=== PATIENT | male | born 1995 | race Caucasian/White ===

== ENCOUNTER 2020-06-10 16:24 | Emergency (ER) | payer BC, OTHER ==
[~2020-06-10] VITALS: Ht 187.9 cm; Wt 88.4 kg
[2020-06-10] MEDS ORDERED: NS IV 1000 ML 1,000 ML IV SCH (17:04)
[2020-06-10 17:12] LABS: BILIRUBIN,URINE NEGATIVE (NEGATIVE); CLARITY,URINE CLEAR; COLOR,URINE YELLOW; GLUCOSE, URINE (UA) NEGATIVE (NEGATIVE); KETONES,URINE NEGATIVE (NEGATIVE); LEUKOCYTE ESTERASE ,URINE NEGATIVE (NEGATIVE); NITRITE,URINE NEGATIVE (NEGATIVE); PROTEIN,URINE NEGATIVE (NEGATIVE)
--- NOTE | 2020-06-10 17:13 | NUR ---
Pt declining all interventions at this time except having urine tested and the COVID swab. Pt refusing chest xray, IV, labs and fluids. Susy Shoemaker notified.
[2020-06-10 17:23] LABS: AMORPHOUS SEDIMENT,UR RARE AMOR URATES /LPF; BACTERIA,URINE NEGATIVE /HPF
--- NOTE | 2020-06-10 17:30 | NUR ---
Went in to have pt sign AMA form; pt now wanting to stay.
--- NOTE | 2020-06-10 17:50 | NUR ---
Pt only wants COVID swab and no other interventions.
--- NOTE | 2020-06-10 18:15 | ED General ---
General Chief Complaint: Fever-Adult/Adol Stated Complaint: FEVER / FATIGUE Nursing Triage Note: Pt c/o chills and back pain that began today. Pt went to chiropractor for back without relief. Pt reports taking Ibuprophen 800 mg CHANGE PERSON. Nursing Sepsis Screen: Possible Severe Sepsis Risk (TAD REYNAGA) History of Present Illness Date Seen by Provider: Jun 13, 2020 Time Seen by Provider: 16:55 Initial Comments 24-year-old male patient reports for back pain that began today, he was seen by a chiropractor with no improvement of his symptoms. He took ibuprofen 800 mg. History of previous back problems. He denies any pain radiating into his legs. He denies any bowel or bladder retention or incontinence. He has occ cough and congestion, with fever today. No known COVID exposure but he has not been social distancing. He has not been tested for COVID. No change in smell or taste. Timing/Duration: 24 Hours, Intermittent Severity: Mild Associated Systoms: Denies Symptoms; No Weakness; Other (no bowel or bladder changes) (TAD REYNAGA) Allergies and Home Medications Allergies Coded Allergies: acetaminophen (Unverified Allergy, Unknown, 06/10/20) Patient Home Medication List Home Medication List Reviewed: Yes (TAD REYNAGA) Review of Systems Review of Systems Constitutional: see HPI, fever Respiratory: see HPI, cough; No phlegm Cardiovascular: no symptoms reported, see HPI Gastrointestinal: no symptoms reported, see HPI Musculoskeletal: see HPI, back pain (TAD REYNAGA) All Other Systems Reviewed Negative Unless Noted: Yes (TAD REYNAGA) Past Uqpfabl-Pjxlkl-Vxkola Hx Past Med/Social Hx: Reviewed Nursing Past Med/Soc Hx (TAD REYNAGA) Patient Social History Alcohol Use: Occasionally Uses Recreational Drug Use: Yes (marijuana) Smoking Status: Current Someday Smoker Type Used: Cigarettes 2nd Hand Smoke Exposure: Yes Recent Foreign Travel: No Contact w/Someone Who Travel: No Recent Infectious Disease Expo: No (TAD REYNAGA) Physical Exam Vital Signs Capillary Refill : Less Than 3 Seconds (TAD REYNAGA) Height, Weight, BMI Height: '" Weight: lbs. oz. kg; 25.00 BMI Method: General Appearance: No Apparent Distress, WD/WN HEENT: PERRL/EOMI, TMs Normal, Normal ENT Inspection, Pharynx Normal; No Pharyngeal Erythema, No Tonsillar Exudate, No Tonsillar Enlargement Neck: Full Range of Motion, Normal Inspection, Non Tender Respiratory: Chest Non Tender, Lungs Clear, Normal Breath Sounds Cardiovascular: Regular Rate, Rhythm, No Edema, No Murmur, Normal Peripheral Pulses Gastrointestinal: Normal Bowel Sounds, Soft Back: Normal Inspection, Muscle Spasm; No Vertebral Tenderness; Other (ambulates with a steady gait, negative straight leg raising sign, neurovascular status intact bilateral lower extremities.) Extremity: Normal Capillary Refill, Normal Inspection, Normal Range of Motion Neurologic/Psychiatric: Alert, Oriented x3, No Motor/Sensory Deficits, Normal Mood/Affect Skin: Normal Color, Warm/Dry (TAD REYNAGA) Progress/Results/Core Measures Suspected Sepsis Recent Fever Within 48 Hours: Yes Infection Criteria Present: Suspected New Infection New/Unexplained Altered Menta: No Sepsis Screen: Possible Severe Sepsis Risk SIRS Temperature: Pulse: 105 Respiratory Rate: 18 Blood Pressure 134 /91 Mean: 105 (TAD REYNAGA) Results/Orders Vital Signs/I&O Capillary Refill : Less Than 3 Seconds (TAD REYNAGA) Blood Pressure Mean: 105 Progress Note : Time: 16:55 Progress Note Patient seen and evaluated, recommended labs, COVID swab and UA. 1715 Patient declining lab, agreeable to UA. Speaking to his mom by Cell phone. Concerned about "cost of all these tests." Patient reports he will leave AMA, explained importance of quarantining, calling [facility] tomorrow and having COVID test completed tomorrow. Patient talked to his mom, agreeable to stay here and be treated. Will complete COVID test. Notified lab, as order was cancelled and they re-entered it. 1730 [address] 99.[address] Thrasher, she will be in touch with him and collect contact tr acing at [facility] tomorrow. Discharge instructions and return precautions reviewed with the patient. All questions answered. (TAD REYNAGA) Progress Note : Progress Note Patient is laboratory confirmed COVID-19 Positive. Patient has been informed as well as [facility]. (ZEE BELCHER MD) Departure Impression Primary Impression: Fever Qualified Codes: R50.9 - Fever, unspecified Additional Impressions: Back pain Qualified Codes: M54.5 - Low back pain covd-19 PUI Disposition: 01 HOME, SELF-CARE Condition: Improved Departure-Patient Inst. Decision time for Depature: 18:00 (TAD REYNAGA) Referrals: NO,LOCAL PHYSICIAN (PCP) Primary Care Physician CHARLES THRASHER MD Patient Instructions: Coronavirus Disease 2019 (COVID-19) (DC), Fever, Adult (DC) Add. Discharge Instructions: You must Quarantine at home, do not leave your house. We will contact you when the COVID results are back. Contact Carlota Faria at [facility] for COVID instructions. 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 All close contacts and roommates must quarantine and call [facility] Tomorrow. Increase fluids, 16 oz every 2 hours. Ibuprofen 600 mg every 8 hours for fever or pain. Call student health for any concerns. Return to Emergency Dept for difficulty breathing, temperature greater than 101 not relieved by Ibuprofen or new, urgent concerns. All discharge instructions reviewed with patient and/or family. Voiced understanding. Copy Copies To 1: CHARLES THRASHRE MD, AMY ARNP Jun 10, 2020 18:15 ZEE BELCHER MD Jun 19, 2020 07:03
[2020-06-10 18:30] VITALS: BP 134/91
--- OUTSIDE RECORDS SUMMARY | 2020-06-10 19:33 | XMS REPORT | Continuity of Care Document ---
Author Author [facility] Organization [employer] Address Unknown Phone Unavailable Allergies Active Description Code Type Severity Reaction Onset Reported/Identified Relationship to Patient Clinical Status Yes ACETOMINOPHEN Drug Allergy N/A N/A Medications Medication Packaging Start Date St op Date Route Dosage Sig Ophthalmic 09/05/2015 09/12/2015 Ophthalmic 1 four t imes daily Problems There is no data. Procedures There is no data. Results There is no data. Encounters ACCT No. Visit Date/Time Discharge Status Pt. Type Provider Facility Loc./Unit Complaint [id number] 07/28/2017 16:26:07 07/28/2017 16:26: 07 [facility] Unknown
== END 2020-06-10 18:30 | disposition home or self-care (01) ==
LOC: ER 16:26
DX: U07.1 COVID-19 (principal); M54.9 Dorsalgia, unspecified; F17.210 Nicotine dependence, cigarettes, uncomplicated; Z20.828 Contact with and (suspected) exposure to other viral communicable diseases; Z88.6 Allergy status to analgesic agent
CPT/HCPCS: 81000; 99282; U0002; 87635